=== PATIENT | male | born 1995 | race Two or more races ===

== ENCOUNTER 2025-01-01 19:32 | Emergency (ER) | payer OTHER ==
[~2025-01-01] VITALS: Ht 172.7 cm; Wt 68.9 kg
[2025-01-01] MEDS ORDERED: PROAIR RESPICL90 MCG IH (19:57)
[2025-01-01] MEDS ORDERED: KETOROLAC TROMETHAMINE 60 MG VIAL IM ONE (23:45)
[2025-01-01 23:59] LABS: HEMATOCRIT 47.4 % (39.0-48.0); MEAN CELL VOLUME 88.2 fL (80.0-100.00); MEAN CORPUSCULAR HEMOGLOBIN 29.8 pg (27.00-32.0); MEAN CORPUSCULAR HGB CONC 33.7 g/dl (32.0-36.0); PLATELET COUNT 277 K/uL (150-450); RED BLOOD COUNT 5.37 M/uL (4.00-6.00); RED CELL DISTRIBUTION WIDTH 13.8 % (11.5-14.5)
[2025-01-02 00:03] LABS: ERYTHROCYTE SEDIMENTATION RATE 4 mm/hr
[2025-01-02 00:24] LABS: ALBUMIN 4.4 gm/dL (3.4-5.0); BILIRUBIN TOTAL 1.07 mg/dL (0.3-1.2); CALCIUM 9.9 mg/dL (8.5-10.1); CREATININE SERUM 0.97 mg/dL (0.70-1.30); GFR 91.5; GLOBULINA 3.7 G/DL (2.4-3.5); POTASSIUM 3.88 mEq/L (3.5-5.1); TOTAL PROTEIN 8.1 gm/dL (6.4-8.2)
[2025-01-02] MEDS ORDERED: KETOROLAC TROMETHAMINE 60 MG VIAL IM ONE (00:50)
[2025-01-02] MEDS ORDERED: METHYLPREDNISOLONE SOD SUCC 125 MG VIAL IV STA (04:02)
[2025-01-02] MEDS ORDERED: CEFTRIAXONE SODIUM 1,000 MG VIAL IV STA (04:02)
[2025-01-02] MEDS ORDERED: METHYLPREDNISOLONE SOD SUCC 125 MG VIAL ONE (04:07)
[2025-01-02] MEDS ORDERED: METOCLOPRAMIDE HCL 5 MG/ML VIAL IM STA (08:03)
[2025-01-02] MEDS ORDERED: 0.9 % SODIUM CHLORIDE 1,000 ML IV STA (08:04)
[2025-01-02] MEDS ORDERED: FAMOtidine 10 MG/ML (4ML VIAL) IV PUSH STA (08:04)
[2025-01-02] MEDS ORDERED: FAMOTIDINE/PF 20 MG/2 ML VIAL ONE (08:12)
[2025-01-02] MEDS ORDERED: METOCLOPRAMIDE HCL 5 MG/ML VIAL ONE (08:12)
[2025-01-02 08:51] LABS: HEMOGLOBIN 15.9 g/dL (13-16.00); MEAN CELL VOLUME 88.1 fL (80.0-100.00); MEAN CORPUSCULAR HEMOGLOBIN 29.8 pg (27.00-32.0); MEAN CORPUSCULAR HGB CONC 33.9 g/dl (32.0-36.0); PLATELET COUNT 252 K/uL (150-450); RED BLOOD COUNT 5.34 M/uL (4.00-6.00); RED CELL DISTRIBUTION WIDTH 13.7 % (11.5-14.5)
[2025-01-02] MEDS ORDERED: METHYLPREDNISOLONE SOD SUCC 125 MG VIAL IV ONE (10:00)
== END 2025-01-02 08:51 | disposition home or self-care (01) ==
LOC: ER 19:35
PROVIDERS: General Practice; Preventive Medicine Public Health & General Preventive Medicine
DX: K11.20 Sialoadenitis, unspecified (principal); Z91.012 Allergy to eggs; Z91.018 Allergy to other foods
CPT/HCPCS: 36415; 70491; Q9965